=== PATIENT | male | born 1965 | race Caucasian/White ===

== ENCOUNTER 2019-07-23 06:54 | Inpatient (IN) ==
[2019-07-17 18:14] LABS: Basophils # (Auto) 0 K/mcL (0.0-0.3); Basophils % (Auto) 0.1 % (0.0-2.0); Eosinophils # (Auto) 0.1 K/mcL (0.0-0.7); Eosinophils % (Auto) 1.1 % (0.0-7.0); Granulocytes % (Auto) 61.4 % (38.0-78.0); Hematocrit 44.2 % (41.0-55.0); Hemoglobin 14.9 g/dL (13.5-16.5); Lymphocytes # (Auto) 1.8 K/mcL (1.5-4.8); Mean Cell Volume 84.1 fL (80.0-100.0); Mean Corpuscular HGB Conc 33.7 g/dL (31.0-36.0); Mean Platelet Volume 9.5 fL (7.4-10.4); Monocytes # (Auto) 0.6 K/mcL (0.1-0.9); Monocytes % (Auto) 9.4 % (1.0-12.0); Platelet Count 244 K/mcL (140-440); RBC 5.26 M/mcL (4.50-5.90); Red Cell Distribution Width 13.4 % (11.5-14.5); WBC 6.4 K/mcL (4.5-11.0)
[2019-07-17 18:21] LABS: Appearance,Urine CLEAR; Bilirubin,Urine NEG (NEG); Color,Urine YELLOW; Culture Indicated,Urine NO; Glucose,Urine (UA) NEGATIVE (NEG); Ketones,Urine NEG (NEG); Leukocyte Esterase,Urine NEG /uL (NEG); Nitrate,Urine NEG (NEG); Protein,Urine NEG (NEG); Specific Gravity,Urine 1.021 (1.000-1.035); Urine Blood NEG mg/dL (<0.03); Urobilinogen,Urine NEG (NEG)
[2019-07-17 18:27] LABS: Blood Urea Nitrogen 12 mg/dl (6-20); Calcium 9.2 mg/dl (8.6-10.4); Carbon Dioxide 26 mmol/L (22-30); Chloride 100 mmol/L (96-108); Glomerular Filtration Rate 87; Glucose 140 mg/dL (70-105)
[2019-07-17 19:03] LABS: Estimated Average Glucose(eAG) 163 mg/dL; Hemoglobin A1C 7.3 % HGB (4.0-6.0)
[~2019-07-23 06:54] MED LIST: 0.9 % SODIUM CHLORIDE 9 ML, KETOROLAC 30 MG, ROPIVACAINE HCL/PF 49.5 ML, EPINEPHrine 0.... IJ SCH; CELECOXIB 200 MG CAPSULE PO SCH; IPRATROPIUM/ALBUTEROL 3 ML AMPUL.NEB NEB PRN; PREGABALIN 75 MG CAPSULE PO SCH; SCOPOLAMINE 1 PATCH PATCH TOPICAL PRN; ceFAZolin 3 GM in DEXTROSE 5% IN WATER 50 ML IV SCH; oxyCODONE 10 MG TAB.ER.12H PO SCH
[2019-07-23] MEDS ORDERED: KETAMINE 100 MG/ML ML IV ONE (10:19)
[2019-07-23] MEDS ORDERED: ONDANSETRON 4 MG/2 ML VIAL IV ONE (10:19)
[2019-07-23] MEDS ORDERED: PROPOFOL 200 MG/20 ML VIAL IV ONE (10:19)
[2019-07-23] MEDS ORDERED: TRANEXAMIC ACID 1,000 MG/10 ML VIAL IV ONE ×2 (10:19→12:14)
[2019-07-23] MEDS ORDERED: ROPIVACAINE HCL/PF 20 ML VIAL IJ ONE (10:19)
[2019-07-23] MEDS ORDERED: ePHEDrine 50 MG/ML AMPUL IV ONE (10:19)
[2019-07-23] MEDS ORDERED: LIDOCAINE HCL/PF 100 MG/5 ML SYRINGE IV ONE (10:19)
[2019-07-23] MEDS ORDERED: MIDAZOLAM 2 MG/2 ML VIAL IV ONE (10:19)
[2019-07-23] MEDS ORDERED: PHENYLEPHRINE 10 MG/ML VIAL IV ONE (10:19)
[2019-07-23] MEDS ORDERED: GLYCOPYRROLATE 0.2 MG/ML VIAL IV ONE (10:19)
[2019-07-23] MEDS ORDERED: DEXAMETHASONE 10 MG/ML VIAL IV ONE (10:19)
[2019-07-23] MEDS ORDERED: ACETAMINOPHEN 1,000 MG/100 ML BOTTLE IV ONE (11:21)
[2019-07-23] MEDS ORDERED: IPRATROPIUM/ALBUTEROL 3 ML AMPUL.NEB NEB PRN (11:21)
[2019-07-23] MEDS ORDERED: FLUMAZENIL 0.1 MG/ML ML IV PRN (11:21)
[2019-07-23] MEDS ORDERED: METOPROLOL TARTRATE 5 MG/5 ML VIAL IV PRN (11:21)
[2019-07-23] MEDS ORDERED: fentaNYL 100 MCG/2 ML VIAL IV PRN (11:21)
[2019-07-23] MEDS ORDERED: MEPERIDINE 25 MG/ML SYRINGE IV PRN (11:21)
[2019-07-23] MEDS ORDERED: METHOCARBAMOL 1,000 MG/10 ML VIAL IV PRN (11:21)
[2019-07-23] MEDS ORDERED: HYDROmorphone 2 MG/ML VIAL IV PRN ×2 (11:21→12:14)
[2019-07-23] MEDS ORDERED: ONDANSETRON 4 MG/2 ML VIAL IV PRN ×2 (11:21→12:14)
[2019-07-23] MEDS ORDERED: NALOXONE HCL 0.4 MG/ML VIAL IV PRN (11:21)
[2019-07-23] MEDS ORDERED: BENZOCAINE/MENTHOL 1 LOZENGE PO PRN ×2 (11:21→12:14)
[2019-07-23] MEDS ORDERED: LABETALOL 5 MG/ML ML IV PRN (11:21)
[2019-07-23] MEDS ORDERED: LACTATED RINGERS 250 ML IV PRN (11:21)
[2019-07-23] MEDS ORDERED: LACTATED RINGERS 1,000 ML IV SCH (11:30)
[2019-07-23] MEDS ORDERED: POLYETHYLENE GLYCOL 3350 17 GM PACKET PO PRN (12:14)
[2019-07-23] MEDS ORDERED: BISACODYL 10 MG SUPP.RECT PR PRN (12:14)
[2019-07-23] MEDS ORDERED: FLEETS ADULT ENEMA PR PRN (12:14)
[2019-07-23] MEDS ORDERED: DEXTROSE 31 GM ORAL.SUSP PO PRN (12:14)
[2019-07-23] MEDS ORDERED: MAGNESIUM HYDROXIDE 30 ML ORAL.SUSP PO PRN (12:14)
[2019-07-23] MEDS ORDERED: DEXTROSE 50% 50 ML VIAL IV PRN (12:14)
--- NOTE | 2019-07-23 12:14 | Brief Operative Note ---
Date of procedure: 07/23/19 Pre-op diagnosis: Right knee patellar instability and arthrosis Post-op diagnosis: same Procedure: Right robotic assisted total knee arthroplasty Grafts/Implants: Yes ([place] Triathlon CR 8 femur, 7 tibia, 11mm insert, 39 patella) Anesthesia: spinal, GLMA Findings: arthrosis, patellar maltracking Complications: none Surgeon: Gurinder Saul Residential Property Tax Appraiser: Melchor Gomez Estimated blood loss (cc): 30 Specimens Removed/Pathology: none sent Condition: stable Disposition: PACU
--- NOTE | 2019-07-23 13:34 | Operative Note ---
DATE OF OPERATION: 07/23/2019 PREOPERATIVE DIAGNOSIS: Right knee patellar instability with arthrosis. POSTOPERATIVE DIAGNOSIS: Right knee patellar instability with arthrosis. PROCEDURE PERFORMED: Right robotic-assisted total knee arthroplasty placing a [place] Triathlon size 8 cruciate retaining femoral component, size 7 tibial baseplate, an 11 mm X3 tibial insert with a 39 mm patellar button. SURGEON: Gurinder Saul MD SEAM FINISHER: Corby Gomez PA-C. This provider's expertise and technical skill were required throughout the case. The PA assisted with preoperative coordination, intraoperative retraction, wound closure, dressing and splint application, as well as postoperative documentation and care coordination. ANESTHESIA: Spinal plus general. DRAINS: None. SPECIMENS: Bone cuts, which were discarded. BLOOD LOSS: 30 mL POSTOPERATIVE CONDITION: Stable. INDICATIONS FOR SURGERY: This is a 53-year-old male who dislocated his patella and has had recurrent instability and pain. Radiographs showed some arthrosis as well. Due to his age, we did not feel a Yossi osteotomy would be a great outcome given the arthrosis. FINDINGS AT SURGERY: There was full-thickness cartilage loss off the patella. There was grade II and III off of the lateral trochlear groove of the femur. Post implantation showed good joint stability and satisfactory patellar tracking. PROCEDURE IN DETAIL: The patient when seen preoperatively. Informed consent had been obtained after discussion of risks, benefits of surgery including, but not limited to, bleeding risk, possibly requiring transfusion; infection, possibly requiring implant removal and prolonged IV antibiotics; injury to nerves, blood vessels other surrounding structures; anesthetic risks; incomplete or no resolution of symptoms; stiffness; swelling; instability; DVT and pulmonary embolus risks; and the possibility of needing further revision surgery given his relatively young age. He understood these risks and wished to proceed. Correct operative site was marked and the patient was given spinal anesthesia. He was then taken to the operating room and LMA general given. The right lower extremity was carefully prepped and draped in normal sterile fashion and a timeout performed verifying patient name, operative site, and plan. Ioban was used to cover all skin surfaces and an Esmarch was used to exsanguinate the extremity and tourniquet was inflated to 350. A midline incision was made with a scalpel through skin and subcutaneous tissue. IrriSept was irrigated and a medial parapatellar arthrotomy made and subperiosteal exposure was done of the anterior medial tibia. Retropatellar fat pad was excised and then anterior horns of the meniscus removed. ACL was transected. The patella was noted to have fragments off the medial side in addition to grade IV chondromalacia. We went ahead and excised the medial bone fragments and then a bit freehand resection, making sure we resected the same or less than we would be replacing. He originally measured 26 mm thick and we were down to 13 mm post-resection. We went ahead and placed a cut protector and then did a preliminary lateral facetectomy. We then flexed the knee up, placed our femoral and tibial check points; two stab incisions were made over the femur and two over the tibia and bicortical pins placed and the arrays were connected. We then did our hip center of rotation check. Green probe was used to identify the medial and lateral malleoli and then do double checks of our checkpoints. Blue probe was used to do our mapping. Minimal osteophytes were removed and then spoons were used to check our flexion, extension gaps. He had a significant gap sizes. We ended up removing the tibia up and the femur distal; however, to get 17 mm gaps the femur was not cutting bone laterally so we had to move the femur up 2 mm to get bone cut laterally. This made us need to balance the knee at 19 mm gaps. We went ahead and made adjustments. We had 1 degree of varus in the femur and 2 in the femur. External rotation was 5 degrees to the posterior condylar axis. We then used the robotic arm to make our bone cuts. The tibia was subluxed forward and a 7 was placed, externally rotated as bone coverage would allow. This was pinned into place and boss reamer and keel punch were used to prepare. The femur was elevated and a curved osteotome used to remove posterior osteophytes and then a curved curet. We then placed a femoral component; it fit perfectly, medial and lateral were flush. Holes were drilled for the pegs and then a 9 insert was placed. The knee was taken into extension and we could push him down to about 3-4 degrees short of full. We then prepared the patella using a 39 and medializing maximally. Holes were drilled and then a patellar trial placed. Post-reconstruction thickness was 1 mm thinner than the pre-resection. We then checked our tracking. He did still want to tilt lateral so we did do a lateral retinacular release using the Bovie cautery starting approximately 1 cm lateral patella at its superior most margin and extending distally all the way to the tibia. This significantly improved the patellar tracking, so we went ahead and removed trial implants. Definitive implants were opened except for the tibial insert. We irrigated the joint with IrriSept, after waiting a minute we pulse lavaged copiously with saline. We drilled some holes in the sclerotic medial tibia and then antibiotic cement was mixed. CO2 gun was used to clean and dry the cancellous bone surface after pulse lavaging with saline. We cemented the tibia and removed excess cement. The femur was then cemented and excess cement removed, and then the 9 insert trial was placed. The knee was taken into extension, placed on a bump and excess cement removed. We then cemented the patellar button and removed excess cement. Checkpoints were removed. We checked our full extension and again we are a couple degrees short of full. We went ahead and filled the joint with IrriSept and then injected pain cocktail. We removed our checkpoint pins and arrays. We then injected pain cocktail in the pericapsular and subcutaneous tissues. After cement was fully hardened, we flexed the knee up. We removed the 9 insert trial and removed excess cement with 1/4 inch osteotome. Due to his size and the fact that we had actually cut 19 mm gaps I felt that a thicker polyethylene would be advantageous both for stability and wear so we opened an 11 insert. The pain cocktail was injected in the posterior medial capsule and then the tray was irrigated with IrriSept, and then we impacted the tibial insert. This was very snug; however, we were able to get it in and then the knee was very stable. We then filled the knee with IrriSept, after waiting a minute we pulse lavaged with saline and the knee was placed in about 45 degrees of flexion. Towel clamps were used to hold the patella in position. Interrupted #2 FiberWire [id number] were used around the superior quadrant of the patella, interrupted #1 Vicryl [id number] around the inferior quadrant, running #1 Vicryl was used for patellar tendon and quad tendon. Final IrriSept irrigation was done, after a minute final pulse lavage, and then 2-0 Monocryl for subcutaneous and bryan for skin. Xeroform sterile dressings were applied. Tourniquet was released and patient was awakened, extubated, and transferred to recovery in stable condition. BJB:nina Job ID: [id number] Doc ID: [id number] Gurinder Saul MD
[2019-07-23] MEDS: 0.9 % SODIUM CHLORIDE 10 ML SYRINGE IV SCH ×2 (14:22→23:37)
[2019-07-23] MEDS: 0.9 % SODIUM CHLORIDE 1,000 ML IV SCH ×3 (14:22→23:33)
[2019-07-23] MEDS: ceFAZolin 1 GM VIAL IV SCH ×2 (14:22→21:13)
--- NOTE | 2019-07-23 14:28 | XRay Report ---
CLINICAL INFORMATION: Post-op total knee. COMPARISON: None. FINDINGS: Total knee prostheses is anatomically aligned. No osseous abnormality. Periarticular gas and soft tissues seen as expected. IMPRESSION: Negative Interpreted and Authenticated by: Tucker Montiel 07/23/19
[2019-07-23] MEDS: HYDROcodone/APAP 10/325MG TABLET PO PRN ×2 (15:11→19:37)
[2019-07-23] MEDS: KETOROLAC 30 MG/ML VIAL IV SCH (17:30)
[2019-07-23] MEDS: INSULIN LISPRO 1 UNIT/0.01 ML UNIT SQ SCH ×2 (17:30→23:36)
[2019-07-23] MEDS ORDERED: BISACODYL 5 MG TABLET PO SCH (21:00)
[2019-07-23] MEDS ORDERED: amLODIPine 5 MG TABLET PO SCH (21:00)
[2019-07-23] MEDS ORDERED: ATORVASTATIN 20 MG TABLET PO SCH (21:00)
[2019-07-23] MEDS ORDERED: DOCUSATE SODIUM 100 MG CAPSULE PO SCH (21:00)
[2019-07-23] MEDS ORDERED: SENNOSIDES 1 TABLET PO SCH (21:00)
[2019-07-23] MEDS ORDERED: PRAMIPEXOLE 0.25 MG TABLET PO SCH (21:00)
[2019-07-23] MEDS: GABAPENTIN 300 MG CAPSULE PO SCH (21:13)
[2019-07-23] MEDS: DOCUSATE SODIUM 100 MG CAPSULE PO SCH (21:14)
[2019-07-23] MEDS: ASPIRIN 81 MG TAB.CHEW PO SCH (23:35)
[2019-07-24] MEDS: KETOROLAC 30 MG/ML VIAL IV SCH ×2 (00:06→05:27)
[2019-07-24] MEDS: 0.9 % SODIUM CHLORIDE 1,000 ML IV SCH ×2 (01:38→05:08)
[2019-07-24] MEDS: 0.9 % SODIUM CHLORIDE 10 ML SYRINGE IV SCH (05:08)
[2019-07-24] MEDS ORDERED: OMEPRAZOLE 20 MG CAPSULE PO SCH (07:30)
[2019-07-24] MEDS: HYDROcodone/APAP 10/325MG TABLET PO PRN ×2 (07:31→11:03)
[2019-07-24] MEDS: INSULIN LISPRO 1 UNIT/0.01 ML UNIT SQ SCH (07:36)
--- NOTE | 2019-07-24 07:42 | Discharge Summary ---
Providers - Providers Patient information: Note initiated : 07/24/19 at 7:40 am Service Date, if different from initiated Date: [] Patient: Magdi Reid 53 y/o M admitted on 07/23/19 for Right Total Knee Arthroplasty [place] . Chief Complaint: [] Discharge date: 07/24/19 Hospitalization Hospital Course: Pt was admitted for a R TKA. Pt underwent the procedure on the day of admission. Pt was transferred to the floor for IV abx, pain meds and PT. Pt discharged post-op day1. will f/u in 2 weeks. Discharge diagnosis: R knee post-traumatic OA Exam - Exam Clean and dry: Yes Weight bearing status: as tolerated Ortho Discharge - TKA - Patient Instructions Diet: Regular Diet Activity: activity as tolerated Total Knee Protocol: For Total Knee: Start ROM CONOR with stationary bike or rocking chair. Work on gaining full extension of knee. Posterior dislocation precautions provided. Hip abductor strengthening and gait training instructions provided. Apply Cryocuff as instructed. Dressing Care: May shower in 2 days - Follow Up Plan Disposition: Home, Self-Care Prognosis: Good Rehab Potential: Good Overall status at discharge: patient is progressing back to baseline - Orders For Discharge Prescriptions: Aspirin 81 mg PO BID #30 tab.chew Transmission Status: Pending to [facility] HYDROcodone/APAP 10/325MG [Leroy 10-325Mg] 1 - 2 tab PO Q4HP PRN #80 tab PRN Reason: Pain Level 3-6 Prescription Printed Pending Studies Resuscitation Status Full Code Diet Consistent Carbohydrate Diet Start SunJul 23 1216 Hydrocodone Bitart/Acetaminophen (Leroy 10/325mg) 0 tab PO Q4HP PRN PRN Reason: PAIN LEVEL 3-6 Last Admin: 07/24/19 07:31 Dose: 2 tab Documented by: Admin: 07/23/19 19:37 Dose: 1 tab Documented by: Admin: 07/23/19 15:11 Dose: 1 tab Documented by: REGINALD Amlodipine Besylate (Norvasc) [address] [facility] Last Admin: 07/23/19 21:13 Dose: 5 mg Documented by: CHAPARRO Aspirin (Aspirin) 81 mg PO BID [facility] Last Admin: 07/23/19 23:35 Dose: 81 mg Documented by: CHAPARRO Atorvastatin Calcium (Lipitor) [address] [facility] Last Admin: 07/23/19 21:13 Dose: 20 mg Documented by: CHAPARRO Bisacodyl (Dulcolax) [address] [facility] Last Admin: 07/23/19 23:35 Dose: 10 mg Documented by: CHAPARRO Diagnostic Test (Pha) (Accu-Chek) 1 each FS [facility] Last Admin: 07/24/19 07:34 Dose: 1 each Documented by: Admin: 07/23/19 23:34 Dose: 1 each Documented by: Admin: 07/23/19 17:29 Dose: 1 each Documented by: REGINALD Docusate Sodium (Colace) 100 mg PO BID [facility] Last Admin: 07/23/19 21:14 Dose: 100 mg Documented by: CHAPARRO Docusate Sodium (Colace) [address] [facility] Last Admin: 07/23/19 23:35 Dose: 200 mg Documented by: CHAPARRO Gabapentin (Neurontin) 600 mg PO BID [facility] Last Admin: 07/23/19 21:13 Dose: 600 mg Documented by: CHAPARRO Sodium Chloride (Sodium Chloride 0.9%) 1,000 mls @ 125 mls/hr IV .Q8H [facility] Last Admin: 07/24/19 05:08 Dose: Not Given Documented by: Admin: 07/24/19 01:38 Dose: 125 mls/hr Documented by: Infusion: 07/24/19 01:30 Dose: 125 mls/hr Documented by: Admin: 07/23/19 23:33 Dose: Not Given Documented by: Admin: 07/23/19 17:30 Dose: 125 mls/hr Documented by: Infusion: 07/23/19 17:30 Dose: 125 mls/hr Documented by: Admin: 07/23/19 14:22 Dose: 125 mls/hr Documented by: REGINALD Insulin Human Lispro (Humalog) 0 unit SQ [facility]; Protocol Last Admin: 07/24/19 07:36 Dose: Not Given Documented by: Admin: 07/23/19 23:36 Dose: 6 unit Documented by: Admin: 07/23/19 17:30 Dose: 6 unit Documented by: REGINALD Ketorolac Tromethamine (Toradol) 30 mg IV Q6 [facility] Stop: 07/25/19 12:01 Last Admin: 07/24/19 05:27 Dose: 30 mg Documented by: Admin: 07/24/19 00:06 Dose: 30 mg Documented by: Admin: 07/23/19 17:30 Dose: 30 mg Documented by: REGINALD Omeprazole (Prilosec) 20 mg PO ACB [facility] Last Admin: 07/24/19 07:32 Dose: 20 mg Documented by: BUDDY Pramipexole Dihydrochloride (Mirapex) 0.[address] [facility] Last Admin: 07/23/19 23:36 Dose: 0.5 mg Documented by: CHAPARRO Senna (Senokot) [address] [facility] Last Admin: 07/23/19 21:13 Dose: 2 tab Documented by: CHAPARRO Sodium Chloride (Saline Flush) 10 ml IV Q8 [facility] Last Admin: 07/24/19 05:08 Dose: Not Given Documented by: Admin: 07/23/19 23:37 Dose: Not Given Documented by: Admin: 07/23/19 14:22 Dose: 10 ml Documented by: REGINALD Shift Summary 07/24/19 04:11 Shift Summary by Davina Segura Pt in good spirits this shift. Pt treated for pain early in shift, and has denied pain since. Pt up at bedside to use urinal independently with greater than 400 mL UOP each use. Pt with 20 ga IV to left hand with NS infusing at 125 mL per hour. Pt using FWW for assistance. Pt with home CPAP for sleep. Dressing to right knee with slight shadowing at knee that has not worsened during the shift. Initialized on 07/24/19 04:11 - END OF NOTE
[2019-07-24] MEDS ORDERED: VENLAFAXINE 75 MG TABLET PO SCH (09:00)
[2019-07-24] MEDS ORDERED: HYDROCHLOROTHIAZIDE 25 MG TABLET PO SCH (09:00)
[2019-07-24] MEDS ORDERED: ASCORBIC ACID 500 MG TABLET PO SCH (09:00)
[2019-07-24] MEDS ORDERED: PSYLLIUM HUSK 6 GM PACKET PO SCH (09:00)
[2019-07-24] MEDS ORDERED: LOSARTAN 50 MG TABLET PO SCH (09:00)
[2019-07-24] MEDS: DOCUSATE SODIUM 100 MG CAPSULE PO SCH (09:03)
[2019-07-24] MEDS: GABAPENTIN 300 MG CAPSULE PO SCH (09:03)
[2019-07-24] MEDS: ASPIRIN 81 MG TAB.CHEW PO SCH (09:03)
== END 2019-07-24 11:45 | disposition home or self-care (01) | DRG 470 ==
LOC: MEDSUR 06:54
PROVIDERS: ADMIT Orthopaedic Surgery; ATTEND Orthopaedic Surgery